=== PATIENT | female | born 2005 | race Caucasian/White ===

== ENCOUNTER 2023-06-29 12:43 | Outpatient (RCR) | payer OTHER, SELFPAY ==
[2023-06-29 12:50] VITALS: BP 125/83
[2023-06-29] MEDS: RABAVERT RABIES VACC W-DILUENT 2.5 UNIT IM (13:38)
== END 2023-07-01 12:48 | disposition home or self-care (01) ==
LOC: OID 12:43
PROVIDERS: ATTENDING PHYSICIAN Emergency Medicine
DX: Z20.3 Contact with and (suspected) exposure to rabies (principal); Z23 Encounter for immunization
CPT/HCPCS: 90471; 90675

== ENCOUNTER 2023-07-06 08:20 | Outpatient (RCR) | payer OTHER, SELFPAY ==
[2023-07-06 08:45] VITALS: BP 104/65
[2023-07-06] MEDS: RABAVERT RABIES VACC W-DILUENT 2.5 UNIT IM (08:55)
== END 2023-07-07 12:31 | disposition home or self-care (01) ==
LOC: OID 08:20
PROVIDERS: ATTENDING PHYSICIAN Emergency Medicine
DX: Z20.3 Contact with and (suspected) exposure to rabies (principal); Z23 Encounter for immunization
CPT/HCPCS: 90471; 90675